=== PATIENT | female | born 1985 | race Caucasian/White ===

== ENCOUNTER 2018-04-22 20:14 | Emergency (ER) | payer MEDICAID, SELFPAY ==
--- NOTE | 2018-04-22 22:15 | ULT ---
PELVIC ULTRASOUND: Date: 04-22-18 Comparison: None. History: Pelvic pain. Technique: Multiplanar grayscale sonographic imaging of the pelvis obtained with transabdominal and e ndovaginal imaging. The ovaries are assessed with color flow and spectral analysis. FINDINGS: The uterus measures 8.2 x 4.1 x 5.5 cm. The endometrial stripe measures 6 mm, within normal limits. N o uterine mass identified. There is trace free fluid in the pelvic cul-de-sac. The uterus is retroflexed. Blood flow is noted within both ovaries. Small follicles are seen bilaterally. Right ovary measures 3 .4 x 1.4 x 1.6 cm and the left ovary measures 3.9 x 1.2 x 3.4 cm. Nabothian cysts are incidentally n oted. IMPRESSION: 1. No acute findings. POS: [facility]
[2018-04-22] MEDS ORDERED: Ketorolac Tromethamine 30 MG/ML VIAL ONE (23:10)
[2018-04-22] MEDS ORDERED: Ondansetron HCl/PF 4 MG/2 ML Vial ONE (23:10)
== END 2018-04-23 00:04 | disposition home or self-care (01) ==
LOC: ERS 20:14
DX: R10.30 Lower abdominal pain, unspecified (principal); Z79.899 Other long term (current) drug therapy
CPT/HCPCS: 76856; 94760; 96374; 96375; J1885; J2270; J2405